=== PATIENT | male | born 1970 | race Caucasian/White ===

== ENCOUNTER 2019-09-08 10:11 | Emergency (ER) | payer MEDICAID, SELFPAY ==
[2019-09-08 10:15] VITALS: BP 138/88; PULSE 56; RESP 18; TEMP 36.6; O2SAT 99; BMI 25.7
--- NOTE | 2019-09-08 10:41 | ED_ITS ---
HPI - Back Pain/Injury General: Chief Complaint: Back Pain/Injury Stated Complaint: BACK PAIN, N/V LAST WEEK Time Seen by Provider: 09/08/19 10:33 History of Present Illness: HPI Narrative: Patient is a 48-year-old male comes to the ED with multiple complaints of lower back pain, headache and chest pain. Patient describes the chest pain is located in the left shoulder and says he has had it for about 2 weeks. Denies any injury or trauma to cause any shoulder pain or discomfort. Patient is able to move left arm and shoulder normally without any pain. Lower back pain is an acute on chronic problem. Patient says he has had instances of sciatica in the past and is having recent flareup. 2 days ago patient said he started having previous lower back pain and pain radiating down right lower extremity. He denies any numbness, tingling sensation to the right lower extremity. Denies any bladder or bowel incontinence or pelvic anesthesia. Patient is also complaining of a headache. Denies any neurological symptoms, head trauma or vision changes. He describes the headache is on both right and left sides with some neck muscle pain as well. Associated symptoms: Deny abdominal pain, chills, dysuria, fatigue, fever(s), hematuria, nausea or vomiting Review of Systems Const: Denies: fever(s), chills or fatigue Eyes: Denies: change in vision or eye discomfort ENMT: Denies: throat pain, odynophagia, nasal discharge or nasal congestion Card: Denies: chest pain, palpitations, edema, swelling of feet/ankles, dyspnea on exertion or orthopnea Resp: Denies: dyspnea, productive cough or non-productive cough GI: Denies: abdominal pain, nausea, vomiting, diarrhea, constipation or hematochezia : Denies: flank pain, difficulty urinating, dysuria or hematuria Musc: Denies: neck pain, back pain or extremity swelling Skin/Breast: Denies: rash or new lesions Neuro: Denies: headache(s), numbness in extremities or weakness in extremities PFSH ED PFSH: Social History Smoking and tobacco status: current every day smoker Physical Exam Const: COMMON NORMALS: no acute distress, patient oriented x3 and alert GENERAL APPEARANCE: cooperative and comfortable HENMT: COMMON NORMALS: normocephalic HEAD & SCALP: normocephalic MOUTH: Normal oral and palatal mucosa present THROAT: posterior oropharynx normal and uvula midline Eye: COMMON NORMALS: Equal, round and reactive pupils present and EOMs intact bilaterally PUPIL: Yes Equal, round and reactive pupils present DIRECT OPHTHALMOSCOPY: No photophobia Neck/C-Spine: COMMON NORMALS: supple GENERAL: Yes normal visual inspection Chest: COMMONS NORMALS: normal palpation of entire chest wall Resp: COMMON NORMALS: normal respiratory effort, No retractions, No use of accessory muscles and clear to auscultation bilaterally AUSCULTATION: clear to auscultation bilaterally Cardio: COMMON NORMALS: regular rate, regular rhythm, S1 normal heart sound present, S2 normal heart sound present, No gallops present (Cardio), No clicks present (Cardio), No murmurs present (Cardio) and Peripheral pulses 2+ throughout RATE: regular rate RHYTHM: regular rhythm HEART SOUNDS: S1 normal heart sound present and S2 normal heart sound present PERIPHERAL PULSES: Peripheral pulses 2+ throughout GI: COMMON NORMALS: Normal to inspection, nondistended, normoactive bowel sounds present, Soft to palpation, non-tender and no masses PALPATION: Yes Soft to palpation : COMMON NORMALS: Yes no CVA tenderness BLADDER/KIDNEY EXAM: Yes no CVA tenderness Back/Pelvis: COMMON NORMALS: no CVA tenderness LUMBAR SPINE/LOWER BACK: Yes paraspinal muscle tenderness and Yes straight leg raise positive right Extremity: COMMON NORMALS: normal to inspection, full ROM and no pedal edema Neuro: COMMON NORMALS: patient oriented x3 and moves all extremities SENSORIUM/ORIENTATION: Yes alert Skin: COMMON NORMALS: no rashes or lesions noted GENERAL SKIN EXAM: no rashes or lesions noted and dry skin Course Reevaluation(s): Reevaluation #1: pts headache has greatly improved after IV fluids, decadron, toradol, benadryl and reglan. Vital Signs: Vital signs: Vital Signs Temperature 97.8 F 09/08/19 10:15 Pulse Rate 51 L 09/08/19 13:12 Respiratory Rate 18 09/08/19 13:12 Blood Pressure 120/75 09/08/19 13:12 Pulse Oximetry 98 09/08/19 13:12 MDM - Back Pain/Injury MDM Narrative: Medical decision making narrative: pt is a 48 year old male that comes into the ED with complaints of fever, headache, left shoulder ache, non-traumatic acute on chronic lower back pain with radiculopathy down right leg. Exam showed a 48 y/o male in no acute distress and doesn't appear ill. CBC, CMP and UA were unremarkable. EKG showed a sinus bradycardia with concerning st segment elevation or depression. Troponin was negative. Pts headache improved after IV fluids, decadron, toradol, benadryl and reglan. pt was d/c with lumbar radiculopathy and headache and given a prescription for medrol dose robson. follow up with PCP in 7-10 days for reevaluation. pt understood and agreed with plan. Lab Data: Attestation: I reviewed the patient's lab results. Labs: Lab Results 09/08/19 09/08/19 09/08/19 Range/Units 10:50 10:50 10:55 WBC 9.5 (4.0-10.0) 10^3/ uL RBC 5.18 (4.1-5.3) 10^6/u L Hgb 15.5 (11.7-16.6) g/dL Hct 48.5 (42.0-52.0) % MCV 93.6 (80-94) fL MCH 29.9 (28.0-34.0) pg MCHC 32.0 (30.0-36.0) g/dL RDW 12.8 (12.1-15.1) % Plt Count 208 (130-400) 10^3/c mm MPV 10.1 (7.4-10.4) fL Neut % (Auto) 70.0 % Lymph % (Auto) 24.1 % [place] % (Auto) 4.3 % Eos % (Auto) 1.0 % Baso % (Auto) 0.4 % Neut # (Auto) 6.7 (1.8-7.7) 10^3/u L Lymph # (Auto) 2.3 (0.8-4.8) 10^3/u L [place] # (Auto) 0.4 (0.2-0.9) 10^3/u L Eos # (Auto) 0.1 (0.0-0.8) 10^3/u L Baso # (Auto) 0.0 (0.0-0.1) 10^3/u L Nucleated RBC % (a uto) 0 % Nucleated RBCs # 0.0 /100WBC Sodium 136 (136-145) mmol/L Potassium 4.9 (3.5-5.1) mmol/L Chloride 102 (98-107) mmol/L Carbon Dioxide 23 (22-29) mmol/L Anion Gap 15.9 (5-19) BUN 17 (6-20) mg/dL Creatinine 0.9 (0.7-1.2) mg/dL GFR Calculation 90.8 (90-130) mL/min Glucose 113 (65-115) mg/dL Calculated Osmolal ity 279 L (285-295) mOsm/k g Calcium 10.1 (8.5-10.5) mg/dL Total Bilirubin 0.2 (0.15-1.2) mg/dL AST 18 (0-40) U/L ALT 20 (0-41) U/L Alkaline Phosphata se 60 (40-130) IU/L Troponin T Gen 5 n g/L (0-15) ng/mL Total Protein 7.6 (6.6-8.7) g/dL Albumin 4.5 (3.5-5.2) g/dL Globulin 3.1 (1.3-4.6) g/dL Urine Color Yellow (Yellow) Urine Appearance Clear (CLEAR) Urine pH 8 H (5-7) Ur Specific Gravit y 1.010 (1.005-1.030) Urine Protein Neg (Negative) Urine Glucose (UA) Norm (Normal) Urine Ketones Negative (Negative) Urine Blood Neg (Negative) Urine Nitrate Negative (Negative) Urine Bilirubin Neg (NEGATIVE) Prot Sulfosalicyli c Acd Negative (Negative) Urine Urobilinogen Norm (Negative) mg/dL Ur Leukocyte Laura ase Negative (Negative) Urine RBC None (0-2) /hpf Urine WBC 0-4 H (0-5) /hpf Ur Squamous Epith Cells None (0-5) Urine Bacteria Trace (NONE) 09/08/19 Range/Units 12:14 WBC (4.0-10.0) 10^3/ uL RBC (4.1-5.3) 10^6/u L Hgb (11.7-16.6) g/dL Hct (42.0-52.0) % MCV (80-94) fL MCH (28.0-34.0) pg MCHC (30.0-36.0) g/dL RDW (12.1-15.1) % Plt Count (130-400) 10^3/c mm MPV (7.4-10.4) fL Neut % (Auto) % Lymph % (Auto) % [place] % (Auto) % Eos % (Auto) % Baso % (Auto) % Neut # (Auto) (1.8-7.7) 10^3/u L Lymph # (Auto) (0.8-4.8) 10^3/u L [place] # (Auto) (0.2-0.9) 10^3/u L Eos # (Auto) (0.0-0.8) 10^3/u L Baso # (Auto) (0.0-0.1) 10^3/u L Nucleated RBC % (a uto) % Nucleated RBCs # /100WBC Sodium (136-145) mmol/L Potassium (3.5-5.1) mmol/L Chloride (98-107) mmol/L Carbon Dioxide (22-29) mmol/L Anion Gap (5-19) BUN (6-20) mg/dL Creatinine (0.7-1.2) mg/dL GFR Calculation (90-130) mL/min Glucose (65-115) mg/dL Calculated Osmolal ity (285-295) mOsm/k g Calcium (8.5-10.5) mg/dL Total Bilirubin (0.15-1.2) mg/dL AST (0-40) U/L ALT (0-41) U/L Alkaline Phosphata se (40-130) IU/L Troponin T Gen 5 n g/L 6 (0-15) ng/mL Total Protein (6.6-8.7) g/dL Albumin (3.5-5.2) g/dL Globulin (1.3-4.6) g/dL Urine Color (Yellow) Urine Appearance (CLEAR) Urine pH (5-7) Ur Specific Gravit y (1.005-1.030) Urine Protein (Negative) Urine Glucose (UA) (Normal) Urine Ketones (Negative) Urine Blood (Negative) Urine Nitrate (Negative) Urine Bilirubin (NEGATIVE) Prot Sulfosalicyli c Acd (Negative) Urine Urobilinogen (Negative) mg/dL Ur Leukocyte Laura ase (Negative) Urine RBC (0-2) /hpf Urine WBC (0-5) /hpf Ur Squamous Epith Cells (0-5) Urine Bacteria (NONE) EKG Data^: EKG 1: Attestation: I personally reviewed and interpreted this EKG as follows: EKG interpretation date: 09/08/19 Interpretation: Sinus bradycardia, 44 bpm, P waves present, no concerning ST segment elevation or depression seen. Discharge Plan Discharge Patient Disposition: Home, Self-Care Clinical Impression: Lumbar radiculopathy Headache Qualifiers: Headache type: tension-type Headache chronicity pattern: acute headache Intractability: not intractable Qualified Code(s): G44.209 - Tension-type headache, unspecified, not intractable Condition: Stable Prescriptions: New Medrol (Robson) 4 mg tablets,dose pack See Rx Instructions .ROUTE .COMPLEX Qty: 21 RF: 0 No Action Zithromax Z-Robson 250 mg Tablet See Rx Instructions .ROUTE .COMPLEX RF: 0 Discharge Orders: Discharge Order (Routine); Ordered 09/08/19 Ordered By: Yann Lanza Discharge Diet: Regular Discharge Activity: Increase activity as tolerated Patient Instructions: Lumbar Radiculopathy (ED) Activity Restrictions/Additional Instructions: Follow-up with your PCP in 5 to 7 days for reevaluation. Take full course of steroids as prescribed. Stretch lower back daily and you can apply heat or cold pack on back to help with symptoms. Take ibuprofen up to 600 mg 3 times a day to help with pain inflammation. Discharge Date/Time: 09/08/19 13:12 Coding Level of Care Code ED Chief Of Production for Chg Fwd Exam Comprehensive
[2019-09-08 10:55] LABS: Basophils % 0.4 %; Eosinophils # 0.1 10^3/uL (0.0-0.8); Hematocrit 48.5 % (42.0-52.0); Hemoglobin 15.5 g/dL (11.7-16.6); Lymphocytes # 2.3 10^3/uL (0.8-4.8); Lymphocytes % 24.1 %; Mean Corpuscular Hemoglobin 29.9 pg (28.0-34.0); Mean Corpuscular Volume 93.6 fL (80-94); Mean Platelet Volume 10.1 fL (7.4-10.4); Monocytes # 0.4 10^3/uL (0.2-0.9); Monocytes % 4.3 %; Neutrophils # 6.7 10^3/uL (1.8-7.7); Nucleated Red Blood Cells % 0 %; Platelet Count 208 10^3/cmm (130-400); Red Blood Count 5.18 10^6/uL (4.1-5.3); Red Cell Distribution Width 12.8 % (12.1-15.1); White Blood Count 9.5 10^3/uL (4.0-10.0)
[2019-09-08 11:15] LABS: Bilirubin Urine Neg (NEGATIVE); Blood Urine Neg (Negative); Glucose Urine UA Norm (Normal); Ketones Urine Negative (Negative); Leukocyte Esterase Urine Negative (Negative); Nitrate Urine Negative (Negative); Protein Urine Neg (Negative); Sulfosalicylic Acid Urine Negative (Negative); Urine Appearance Clear (CLEAR); Urine Color Yellow (Yellow); Urobilinogen Urine Norm (Negative); pH Urine 8 (5-7)
[2019-09-08 11:22] LABS: Add Urine Culture? No; Bacteria Urine TRACE; WBC Urine 0-4 /hpf (0-5)
[2019-09-08 11:25] LABS: Alanine Aminotransferase 20 U/L (0-41); Albumin Level 4.5 g/dL (3.5-5.2); Alkaline Phosphatase 60 IU/L (40-130); Anion Gap 15.9 (5-19); Aspartate Amino Transferase 18 U/L (0-40); Blood Urea Nitrogen 17 mg/dL (6-20); Calcium 10.1 mg/dL (8.5-10.5); Carbon Dioxide 23 mmol/L (22-29); Chloride 102 mmol/L (98-107); Creatinine Clr Calc Pharmacy 114.2303; Globulin 3.1 g/dL (1.3-4.6); Glomerular Filtration Rate 90.8 mL/min (90-130); Glucose 113 mg/dL (65-115); Osmolality Calculated 279 mOsm/kg (285-295); Potassium 4.9 mmol/L (3.5-5.1); Sodium 136 mmol/L (136-145); Total Bilirubin 0.2 mg/dL (0.15-1.2); Total Protein 7.6 g/dL (6.6-8.7)
[2019-09-08] MEDS: metoclopramide 10 mg Tablet PO (11:33)
[2019-09-08] MEDS: diphenhydrAMINE 50 mg/mL SDV 1mL 25 MG IVP (11:37)
[2019-09-08] MEDS: sodium chloride 0.9% 1,000 ML 999 ML IV (11:37)
[2019-09-08] MEDS: dexamethasone 10 mg/mL INJ IVP (11:39)
[2019-09-08] MEDS: ketorolac 30 mg/mL INJ IVP (11:39)
--- NOTE | 2019-09-08 12:04 | ECG_ITS ---
Measurements Intervals [place] Rate: 44 P: 15 [place]: 150 QRS: 63 QRSD: 92 T: 42 QT: 410 QTc: 354 SINUS BRADYCARDIA MODERATE VOLTAGE CRITERIA FOR LVH, CONSIDER NORMAL VARIANT [MEETS CRITERIA IN ONE OF: R(aVL), S(V1), R(V5), R(V5/V6)+S(V1)] No previous ECG available for comparison Electronically Signed On 09-08-2019 17:04:32 CDT by Galdino Lynn M.D. [id number]
[2019-09-08 12:41] LABS: Troponin T (5th) Once 6 ng/mL (0-15)
[2019-09-08 13:12] VITALS: BP 120/75; PULSE 51; RESP 18; O2SAT 98
== END 2019-09-08 13:12 | disposition home or self-care (01) ==
PROVIDERS: Emergency Provider Physician Assistant
DX: M54.16 Radiculopathy, lumbar region (principal); G44.209 Tension-type headache, unspecified, not intractable; F17.210 Nicotine dependence, cigarettes, uncomplicated
CPT/HCPCS: 12345; 36415; 80053; 81001; 84484; 85025; 93005; 96360; 96361; 96374; 96375; 99283; J1100; J1200; J1885; J7030; J8597

== ENCOUNTER 2019-09-17 13:35 | Emergency (ER) | payer MEDICAID, SELFPAY ==
[2019-09-17 13:48] VITALS: BP 137/84; PULSE 52; RESP 16; TEMP 36.7; O2SAT 99; BMI 25.7
--- NOTE | 2019-09-17 13:57 | XR_ITS ---
WS: [id number] Chest PA portable, 09/17/2019 Clinical Data: chest pain Comparison: PA chest, 11/27/2017. Findings: No nodules, masses or effusions are seen. The heart is normal. The pulmonary vascularity is not increased. No pneumonia or pneumothorax is seen. XR/XR chest 1V portable [id number] Impression: Negative chest.
--- NOTE | 2019-09-17 13:57 | ECG_ITS ---
Measurements Intervals [place] Rate: 62 P: 35 [place]: 133 QRS: 74 QRSD: 100 T: 58 QT: 415 QTc: 422 SINUS RHYTHM WITH OCCASIONAL VENTRICULAR PREMATURE COMPLEXES POSSIBLE LEFT VENTRICULAR HYPERTROPHY [VOLTAGE CRITERIA PLUS LAE OR QRS WIDENING] Compared to ECG 09/08/2019 12:22:39 Ventricular premature complex(es) now present Sinus bradycardia no longer present Electronically Signed On 09-17-2019 15:55:51 CDT by Galdino Lynn M.D. [id number]
--- NOTE | 2019-09-17 14:43 | ED_ITS ---
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 He has not noticed it worsened by movement in his arm or change in position. Does not radiate into his abdomen he denies any abdominal pain. Denies any GI or symptoms no upper respiratory symptoms cough shortness of breath or productive cough. Onset (ago): day(s) (1) Location: chest Radiation: back Severity: moderate Quality: aching and constant Pain Consistency: constant Relieving factors: none Exacerbating factors: other (Activity, exertion) Associated symptoms: Reports chest pain, dyspnea and nausea; Deny cough, diaphoresis, fevers/chills, headache(s), malaise or rash Treatments prior to arrival: none Review of Systems Const: Denies: malaise or diaphoresis ENMT: Denies: throat pain, ear or mastoid pain, nasal discharge or nasal congestion Card: Reports: chest pain Resp: Reports: dyspnea GI: Reports: nausea : Denies: flank pain, dysuria, urinary frequency or urinary urgency Skin/Breast: Denies: rash or pruritus Neuro: Denies: headache(s) PFS ED PFSH: Medical History (Updated 09/17/19 @ 17:41 by Vamsi Aguilar DO) Periodontitis Social History Smoking and tobacco status: current every day smoker Physical Exam Const: COMMON NORMALS: no acute distress GENERAL APPEARANCE: cooperative and comfortable ORIENTATION/CONSCIOUSNESS: Yes awake, Yes oriented to person, Yes oriented to place and Yes oriented to time HENMT: COMMON NORMALS: normocephalic, atraumatic, hearing grossly normal bilaterally, external ears normal, EAC's normal, TM's normal bilaterally, Normal nasal mucous membranes and turbinates present, moist oral mucous membranes and oropharynx normal HEAD & SCALP: normocephalic and atraumatic NOSE: Normal nasal mucous membranes and turbinates present EXTERNAL EAR: Yes external ears normal EXTERNAL AUDITORY CANAL: EAC's normal TYMPANIC MEMBRANE: TM's normal bilaterally Eye: COMMON NORMALS: Equal, round and reactive pupils present, EOMs intact bilaterally, conjunctivae normal and no scleral icterus CONJUNCTIVA: Yes conjunctivae normal PUPIL: Yes Equal, round and reactive pupils present Neck/C-Spine: COMMON NORMALS: full ROM, no lymphadenopathy, supple and no JVD Lymph: LYMPHATIC: no lymphadenopathy noted and no lymphedema noted Resp: COMMON NORMALS: normal respiratory effort, No retractions, No use of accessory muscles and clear to auscultation bilaterally AUSCULTATION: clear to auscultation bilaterally Cardio: COMMON NORMALS: no JVD, regular rate, regular rhythm and No murmurs present (Cardio) RATE: regular rate RHYTHM: regular rhythm GI: COMMON NORMALS: Soft to palpation and No hepatosplenomegaly present AUSCULTATION: Yes normoactive bowel sounds PALPATION: Yes Soft to palpation, No Tenderness to palpation present (GI), No Guarding due to palpation present (GI) and Yes No hepatosplenomegaly present Extremity: COMMON NORMALS: normal to inspection, capillary refill normal, no clubbing, cyanosis or edema, no calf tenderness and no pedal edema Neuro: SENSORIUM/ORIENTATION: Yes oriented to person, Yes oriented to place and Yes oriented to time Skin: COMMON NORMALS: no rashes or lesions noted GENERAL SKIN EXAM: no rashes or lesions noted Course Vital Signs: Vital signs: Vital Signs Temperature 98.0 F 09/17/19 13:48 Pulse Rate 60 09/17/19 17:48 Respiratory Rate 20 H 09/17/19 17:48 Blood Pressure 114/77 09/17/19 17:48 Pulse Oximetry 98 09/17/19 17:48 MDM - General Adult MDM Narrative: Medical decision making narrative: Reviewed findings patient is generally doing pretty well is not having any further symptoms his troponins are negative we will go and set him up for an outpatient stress test start him on aspirin daily think some of this may be GI in nature going to support him on pantoprazole until he gets the stress test done if he has any worsening or change symptoms return to the emergency room immediately Lab Data: Labs: Lab Results 09/17/19 09/17/1909/16/20 Range/Units 14:40 14:40 14:40 WBC 8.9 (4.0-10.0) 10^3/ uL RBC 5.23 (4.1-5.3) 10^6/u L Hgb 15.4 (11.7-16.6) g/dL Hct 48.0 (42.0-52.0) % MCV 91.8 (80-94) fL MCH 29.4 (28.0-34.0) pg MCHC 32.1 (30.0-36.0) g/dL RDW 13.1 (12.1-15.1) % Plt Count 225 (130-400) 10^3/c mm MPV 9.8 (7.4-10.4) fL Neut % (Auto) 59.3 % Lymph % (Auto) 33.0 % [place] % (Auto) 5.9 % Eos % (Auto) 0.9 % Baso % (Auto) 0.8 % Neut # (Auto) 5.3 (1.8-7.7) 10^3/u L Lymph # (Auto) 3.0 (0.8-4.8) 10^3/u L [place] # (Auto) 0.5 (0.2-0.9) 10^3/u L Eos # (Auto) 0.1 (0.0-0.8) 10^3/u L Baso # (Auto) 0.1 (0.0-0.1) 10^3/u L Nucleated RBC % (a uto) 0 % Nucleated RBCs # 0.0 /100WBC Sodium 137 (136-145) mmol/L Potassium 4.0 (3.5-5.1) mmol/L Chloride 98 (98-107) mmol/L Carbon Dioxide 28 (22-29) mmol/L Anion Gap 15.0 (5-19) BUN 12 (6-20) mg/dL Creatinine 1.0 (0.7-1.2) mg/dL GFR Calculation 80.4 L (90-130) mL/min Glucose 91 (65-115) mg/dL Calculated Osmolal ity 280 L (285-295) mOsm/k g Calcium 9.8 (8.5-10.5) mg/dL Total Bilirubin 0.5 (0.15-1.2) mg/dL AST 15 (0-40) U/L ALT 22 (0-41) U/L Alkaline Phosphata se 61 (40-130) IU/L Troponin T Baselin e 6 (0-15) ng/L Troponin T 120 Min ken[place] (0-15) ng/L Delta Troponin T (0-10) ABS# Total Protein 7.9 (6.6-8.7) g/dL Albumin 4.8 (3.5-5.2) g/dL Globulin 3.1 (1.3-4.6) g/dL 09/17/19 Range/Units 16:36 WBC (4.0-10.0) 10^3/ uL RBC (4.1-5.3) 10^6/u L Hgb (11.7-16.6) g/dL Hct (42.0-52.0) % MCV (80-94) fL MCH (28.0-34.0) pg MCHC (30.0-36.0) g/dL RDW (12.1-15.1) % Plt Count (130-400) 10^3/c mm MPV (7.4-10.4) fL Neut % (Auto) % Lymph % (Auto) % [place] % (Auto) % Eos % (Auto) % Baso % (Auto) % Neut # (Auto) (1.8-7.7) 10^3/u L Lymph # (Auto) (0.8-4.8) 10^3/u L [place] # (Auto) (0.2-0.9) 10^3/u L Eos # (Auto) (0.0-0.8) 10^3/u L Baso # (Auto) (0.0-0.1) 10^3/u L Nucleated RBC % (a uto) % Nucleated RBCs # /100WBC Sodium (136-145) mmol/L Potassium (3.5-5.1) mmol/L Chloride (98-107) mmol/L Carbon Dioxide (22-29) mmol/L Anion Gap (5-19) BUN (6-20) mg/dL Creatinine (0.7-1.2) mg/dL GFR Calculation (90-130) mL/min Glucose (65-115) mg/dL Calculated Osmolal ity (285-295) mOsm/k g Calcium (8.5-10.5) mg/dL Total Bilirubin (0.15-1.2) mg/dL AST (0-40) U/L ALT (0-41) U/L Alkaline Phosphata se (40-130) IU/L Troponin T Baselin e (0-15) ng/L Troponin T 120 Min [place] 6.00 (0-15) ng/L Delta Troponin T 0 (0-10) ABS# Total Protein (6.6-8.7) g/dL Albumin (3.5-5.2) g/dL Globulin (1.3-4.6) g/dL Discharge Plan Discharge Patient Disposition: Home, Self-Care Clinical Impression: Atypical chest pain, Chest pain due to gastrointestinal reflux disease Condition: Stable Prescriptions: New pantoprazole 40 mg tablet,delayed release (DR/EC) 40 mg PO DAILY Qty: 30 RF: 0 aspirin 81 mg tablet,delayed release (DR/EC) 81 mg PO DAILY Qty: 30 RF: 0 Discharge Orders: Discharge Order (Routine); Ordered 09/17/19 Ordered By: Vamsi Aguilar Activity Restrictions/Additional Instructions: Case management will call to set up an exercise stress test Discharge Date/Time: 09/17/19 17:51 Coding Level of Care Code ED Cot Assembler for Jane Fwd Exam Comprehensive
[2019-09-17 14:50] LABS: Basophils # 0.1 10^3/uL (0.0-0.1); Basophils % 0.8 %; Eosinophils # 0.1 10^3/uL (0.0-0.8); Eosinophils % 0.9 %; Hemoglobin 15.4 g/dL (11.7-16.6); Mean Corpuscular HGB Conc 32.1 g/dL (30.0-36.0); Mean Corpuscular Hemoglobin 29.4 pg (28.0-34.0); Mean Corpuscular Volume 91.8 fL (80-94); Mean Platelet Volume 9.8 fL (7.4-10.4); Monocytes # 0.5 10^3/uL (0.2-0.9); Monocytes % 5.9 %; Neutrophils # 5.3 10^3/uL (1.8-7.7); Neutrophils % 59.3 %; Nucleated Red Blood Cells % 0 %; Platelet Count 225 10^3/cmm (130-400); Red Blood Count 5.23 10^6/uL (4.1-5.3); Red Cell Distribution Width 13.1 % (12.1-15.1); White Blood Count 8.9 10^3/uL (4.0-10.0)
[2019-09-17 15:02] LABS: Alanine Aminotransferase 22 U/L (0-41); Albumin Level 4.8 g/dL (3.5-5.2); Alkaline Phosphatase 61 IU/L (40-130); Aspartate Amino Transferase 15 U/L (0-40); Blood Urea Nitrogen 12 mg/dL (6-20); Calcium 9.8 mg/dL (8.5-10.5); Carbon Dioxide 28 mmol/L (22-29); Chloride 98 mmol/L (98-107); Globulin 3.1 g/dL (1.3-4.6); Glomerular Filtration Rate 80.4 mL/min (90-130); Glucose 91 mg/dL (65-115); Osmolality Calculated 280 mOsm/kg (285-295); Sodium 137 mmol/L (136-145); Total Bilirubin 0.5 mg/dL (0.15-1.2); Total Protein 7.9 g/dL (6.6-8.7)
[2019-09-17 15:04] LABS: Troponin(5th) Baseline 6 ng/L (0-15)
[2019-09-17 17:04] LABS: Troponin 5 2HR Delta 0 ABS# (0-10)
[2019-09-17 17:48] VITALS: BP 114/77; PULSE 60; RESP 20; O2SAT 98
--- NOTE | 2019-09-17 19:57 | ECG_ITS ---
Measurements Intervals [place] Rate: 48 P: 21 [place]: 150 QRS: 63 QRSD: 97 T: 47 QT: 408 QTc: 366 SINUS BRADYCARDIA MINIMAL VOLTAGE CRITERIA FOR LVH, CONSIDER NORMAL VARIANT [MEETS CRITERIA IN ONE OF: R(aVL), S(V1), R(V5), R(V5/V6)+S(V1)] EARLY REPOLARIZATION [ST ELEVATION WITH NORMALLY INFLECTED T WAVE] Compared to ECG 09/17/2019 13:54:40 Early repolarization now present Sinus rhythm no longer present Ventricular premature complex(es) no longer present Electronically Signed On 09-18-2019 21:01:09 CDT by Yovani Cochran M.D. [id number]
--- NOTE | 2019-09-23 10:43 | DCPLANNER ---
senior manager creative services had message to schedule an outpatient stress test for patient. senior manager creative services called patient and spoke with patients , was told that patient does want to have stress test ordered and primary care is Esmer at the [facility]. senior manager creative services will fax the stress test order to centralized scheduling. senior manager creative services will call for appointment information.
--- NOTE | 2019-09-26 08:42 | DCPLANNER ---
Patient has an out patient stress test scheduled for , October 09, 2019 at 12:15.
--- NOTE | 2019-10-09 15:06 | DCPLANNER ---
Patients stress test has been rescheduled.
== END 2019-09-17 17:51 | disposition home or self-care (01) ==
PROVIDERS: Family Medicine; Emergency Provider Family Medicine
DX: K21.9 Gastro-esophageal reflux disease without esophagitis (principal); R07.89 Other chest pain; F17.210 Nicotine dependence, cigarettes, uncomplicated
CPT/HCPCS: 12345; 36415; 71045; 80053; 84484; 85025; 93005; 99281; 99284

== ENCOUNTER 2020-01-28 09:02 | Emergency (ER) | payer MEDICAID, SELFPAY ==
[2020-01-28 09:18] VITALS: BP 126/81; PULSE 64; RESP 20; TEMP 36.7; O2SAT 99; BMI 25.1
[2020-01-28] MEDS: ketorolac 60 mg/2 mL INJ IM (09:43)
[2020-01-28] MEDS: orphenadrine 30 mg/mL Inj 2 mL 60 MG IM (09:43)
--- NOTE | 2020-01-28 10:04 | ED_ITS ---
HPI - Back Pain/Injury General: Chief Complaint: Back Pain/Injury Stated Complaint: LOWER BACK PAIN, LEG PAIN Time Seen by Provider: 01/28/20 09:06 History of Present Illness: HPI Narrative: 49-year-old male patient presents to the emergency department with complaints of back pain. He reports history of chronic back pain, L4/L5 disc involvement. He denies bilateral lower extremity weakness, denies bowel or bladder incontinence. 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 He states this could have made it worse. He reports back pain for almost 20 years, the pain he is experiencing today is not different and has not changed but is worse. He reports previous work-up from a neurosurgeon, declined neurosurgery, he is requesting an additional referral to a neurosurgeon. MD elicited complaint: back pain Pertinent past history: prior back pain Onset (ago): day(s) (2) Timing: constant Severity: moderate Similar Symptoms Previously: Yes Quality: dull and aching Location: lumbar spine and left lower back Radiation: left upper leg Exacerbating factors: movement, walking and lifting Context: while lifting, turning/twisting and bending Associated symptoms: Reports difficulty walking and tingling/numbness/burning (LLE chronic); Deny abdominal pain, chills, dysuria, fever(s), nausea or vomiting Review of Systems General: Reports: 10 or more systems reviewed and unremarkable except in HPI and below Const: Denies: fever(s), chills or diaphoresis Eyes: Denies: blurry vision or eye redness ENMT: Denies: throat pain, dental pain or disequilibrium Card: Denies: chest pain, palpitations or irregular heart rhythm Resp: Denies: dyspnea, productive cough, non-productive cough or wheezing GI: Denies: abdominal pain, nausea or vomiting : Denies: dysuria Musc: Reports: back pain; Denies: neck pain or muscle weakness Skin/Breast: Denies: rash or pruritus Neuro: Reports: difficulty walking Psych: Denies: anxiety or depression Allan/Lymph: Denies: easy bruising PFS ED PFSH: Medical History (Updated 01/28/20 @ 09:34 by JOHN Saldana) Periodontitis Social History Smoking and tobacco status: current every day smoker Physical Exam Const: COMMON NORMALS: no acute distress, patient oriented x3, healthy appearing and alert GENERAL APPEARANCE: cooperative, comfortable and well hydrated HENMT: COMMON NORMALS: normocephalic, Normal external nose present and moist oral mucous membranes HEAD & SCALP: normocephalic NOSE: Normal external nose present Eye: COMMON NORMALS: Equal, round and reactive pupils present and EOMs intact bilaterally GENERAL EYE: appearance normal, both eyes and all related structures PUPIL: Yes Equal, round and reactive pupils present Neck/C-Spine: COMMON NORMALS: full ROM and no lymphadenopathy GENERAL: Yes normal visual inspection and Yes trachea midline CERVICAL SPINE: Yes cervical ROM normal Lymph: LYMPHATIC: no lymphadenopathy noted Chest: COMMONS NORMALS: normal inspection of the chest Resp: COMMON NORMALS: normal respiratory effort and clear to auscultation bilaterally AUSCULTATION: clear to auscultation bilaterally Cardio: COMMON NORMALS: regular rhythm, S1 normal heart sound present and S2 normal heart sound present RHYTHM: regular rhythm HEART SOUNDS: S1 normal heart sound present and S2 normal heart sound present GI: COMMON NORMALS: Soft to palpation and non-tender INSPECTION: Yes normal to inspection PALPATION: Yes Soft to palpation : COMMON NORMALS: Yes no CVA tenderness BLADDER/KIDNEY EXAM: Yes no CVA tenderness and No CVA tenderness Back/Pelvis: COMMON NORMALS: no CVA tenderness GENERAL BACK: No CVA tenderness THORACIC SPINE/UPPER BACK: Yes normal to inspection, Yes thoracic ROM normal, No thoracic spinal tenderness and No paraspinal muscle spasm LUMBAR SPINE/LOWER BACK: Yes ROM limited, Yes lumbar spinal tenderness, Yes paraspinal muscle tenderness Lumbar paraspinal muscle tenderness: left and Yes straight leg raise positive left PELVIS: Yes buttocks normal SACROILIAC JOINTS: Yes SI joint(s) abnormal SI joint details: tender to palpation (left) and pain elicited by compression of iliac crest maneuver (left) Extremity: COMMON NORMALS: normal to inspection and capillary refill normal Neuro: COMMON NORMALS: patient oriented x3 and no focal motor deficits SENSORIUM/ORIENTATION: Yes alert MONOFILAMENT EXAM PERFORMED: Yes Monofilament Exam (small fiber function): L great toe: normal, L 3rd toe: normal, L 5th toe: normal, R great toe: normal, R 3rd toe: normal and R 5th toe: normal MOTOR EXAM: 5/5 motor strength present throughout Psych: COMMON NORMALS: mental status grossly normal, Normal thought process present and cooperative ACTIVITY/MOTOR BEHAVIOR: Yes appropriate eye contact THOUGHT PROCESS: Normal thought process present Skin: COMMON NORMALS: no rashes or lesions noted and turgor normal GENERAL SKIN EXAM: no rashes or lesions noted and turgor normal Course Vital Signs: Vital signs: Vital Signs Temperature 98.0 F 01/28/20 09:18 Pulse Rate 55 L 01/28/20 11:09 Respiratory Rate 18 01/28/20 11:09 Blood Pressure 124/81 01/28/20 11:09 Pulse Oximetry 99 01/28/20 11:09 Discharge Plan Discharge Patient Disposition: Home Clinical Impression: Lumbar radiculopathy Strain of lumbar region Qualifiers: Encounter type: initial encounter Qualified Code(s): S39.012A - Strain of m uscle, fascia and tendon of lower back, initial encounter Sciatica Qualifiers: Laterality: right Qualified Code(s): M54.31 - Sciatica, right side Condition: Stable Prescriptions: New prednisone 20 mg tablet 20 mg PO BID 5 Days Qty: 10 RF: 0 Robaxin-750 750 mg tablet 750 mg PO TID Qty: 30 RF: 0 naproxen 500 mg tablet 500 mg PO Q12H PRN (Reason: pain) Qty: 20 RF: 0 No Action aspirin 81 mg tablet,delayed release (DR/EC) 81 mg PO DAILY Qty: 30 RF: 0 Discharge Orders: Discharge Order (Routine); Ordered 01/28/20 Ordered By: Urmila Elizabeth Discharge Diet: Usual diet Discharge Activity: Limit activity as instructed Patient Instructions: Sciatica (ED), Chronic Back Pain (ED) Activity Restrictions/Additional Instructions: Avoid [id number] oral medication with exception of Tylenol as duplicate therapy can occur No twisting bending at the waist, no lifting over 10 pounds until symptoms improved Follow-up with your primary care provider after MRI completed. Refer to Dr Gunter completed today - you will be called with appt Outpatient MRI lumbar spine has been ordered, you will be contacted with appointment time and date Return to emergency department if you develop worsening chest pain, falls, inab ility to feel your legs, bladder or bowel incontinence. Stand Alone Forms: Work/School Release Discharge Date/Time: 01/28/20 11:12 Coding Level of Care Code ED [employer] for [employer]
--- NOTE | 2020-01-28 10:51 | DCPLANNER ---
Addendum entered by Shelby Gracia 02/25/20 12:53: rd project manager called the ortho clinic, spoke with Shayy, asked if patient could be seen at the clinic, and if Dr. Gunter feels that patient needs an MRI than he could order an MRI for patient. A follow up appointment was scheduled for Monday, March 02, 2020 at 11:[address] Gunter. Clinic will call patient with appointment information. Addendum entered by Shelby Gracia 02/25/20 12:36: Maria Esther from centralized scheduling contacted outsole caser stating that insurance denied denied the MRI ordered from the ER. rd project manager called phone number [phone], unable to speak with patient at this time. The name on the voicemail was not the patients name. rd project manager did not leave a voicemail for patient to return child welfare caseworker phone call. rd project manager was going to let patient know that the MRI was denied, and that patient would need to follow up with primary care physician, and see if he could refer patient to have an MRI. Original Note: rd project manager was asked to schedule an outpatient MRI for patient. rd project manager faxed order for the MRI for the patient to centralized scheduling. rd project manager will call for appointment information. rd project manager was also asked to refer patient to Dr. Gunter at the ortho clinic. rd project manager will refer patient to physician after the MRI is scheduled.
[2020-01-28 11:09] VITALS: BP 124/81; PULSE 55; RESP 18; O2SAT 99
--- NOTE | 2020-03-23 14:24 | DCPLANNER ---
Patient had a follow up appointment scheduled for 03.02.[address] Gunter - appointment was cancelled.
== END 2020-01-28 11:12 | disposition home or self-care (01) ==
PROVIDERS: Emergency Provider Nurse Practitioner Family
DX: S39.012A Strain of muscle, fascia and tendon of lower back, initial encounter (principal); M54.31 Sciatica, right side; M54.16 Radiculopathy, lumbar region; Z79.82 Long term (current) use of aspirin; F17.210 Nicotine dependence, cigarettes, uncomplicated; X50.1XXA Overexertion from prolonged static or awkward postures, initial encounter
CPT/HCPCS: 12345; 96372; 99281; 99283; J1885; J2360